=== PATIENT | male | born 1995 | race Caucasian/White ===

== ENCOUNTER 2022-06-08 17:06 | Emergency (ER) | payer MEDICAID, SELFPAY ==
[2022-06-08 17:07] VITALS: BP 135/94; PULSE 102; RESP 17; TEMP 36.2; O2SAT 96; BMI 24.4
--- NOTE | 2022-06-08 17:15 | EX.ED.GUMALE ---
HPI History of Present Illness Chief Complaint: Male Pain/Injury Detail of Chief Complaint: Left testicular pain Informant: patient Pain Onset: Today (Acute onset 1 to 2 hours ago) Context: Sudden Onset Timing: Continuous Current Severity: Moderate Maximum Severity: Severe Worsened by: Nothing specific Relieved by: None thank Appearance Lesion(s): No Penile Discharge Genital Discharge Amount: None Related History Sexually: Active Unprotected Sex: Yes STD: No Epididymitis: No Bladder/Kidney Infection: No Enlarged Prostate: No Prostate Infection: No Prostate Cancer: No Narrative Narrative: Patient is a 27-year-old male with history of testicular torsion that was repaired in the remote past. He presents because of abrupt onset of left testicular pain that is been present for 1 to 2 hours. He states since the surgery has had occasional episode of pain that lasted several minutes. There is nothing specific that makes the pain better or worse. There is nothing that precipitates the pain. Patient denies scrotal or testicular swelling. Patient denies penile lesions or discharge. Patient denies fever, chills night sweats. Patient denies history of STI. Prior similar symptoms: No Recent Illness/Hospitalization: No PFSH PFSH Medical History Anxiety Testicular torsion Home Medications NK 06/08/22 [History Last Taken Unknown] Allergy/AdvReac Type Severity Reaction Status Date / Time No Known Allergies Allergy Verified 06/08/22 17:08 Social History (Updated 06/08/22 @ 17:[address] Yao Oconnell MD) household members: significant other Smoking Status: Never smoker substance use type: does not use ROS ROS ED Constitutional Constitutional ED: Denies chills, fever(s), subjective, sweats or weight loss Eyes Eyes: Reports other Details: He denies photophobia. ; Denies blurry vision or change in vision ENT ENT ED: Denies ear pain, rhinorrhea or sore throat Gastrointestinal Gastrointestinal: Denies diarrhea, melena, nausea or vomiting Genitourinary Genitourinary ED: Reports other Details: HPI narrative ; Denies dysuria, hematuria or urinary frequency Musculoskeletal Musculoskeletal: Denies arthralgias, back pain or myalgias Integumentary Denies rash EXAM Physical Exam Const Vital Signs: 06/08/22 17:07 Temperature 97.1 F L Temperature Source Temporal Pulse Rate 102 H Respiratory Rate 17 Blood Pressure 135/94 H Blood Pressure Mean 107 Pulse Ox 96 Oxygen Delivery Method Room Air Positive well nourished and well developed General Appearance ED: well developed and NAD; Negative for pallor HEENT Reports moist mucous membranes normocephalic and atraumatic Eyes PERRL and EOMs intact bilaterally General Eye ED: Negative for pale conjunctiva or scleral icterus Neck no lymphadenopathy, supple and no JVD Resp normal respiratory effort Cardio regular rate and regular rhythm GI non-tender, non-distended and no masses Auscultation: normoactive bowel sounds Palpation: soft no CVA tenderness Narrative: Patient is circumcised. There is no penile lesions. There is no urethral discharge. There is no swelling of the scrotum. There is no swelling of the testicle. There is no tenderness of the testicle per se. There is no inguinal adenopathy. There is no evidence of hernia. Back/Spine no CVA tenderness Extremity normal to inspection General Extremety ED: Negative for edema or pulses abnormal General Extremity: Negative for edema or pulses abnormal Neuro oriented x3, CN's II-XII intact bilaterally and moves all extremities Sensorium / Orientation: alert Sensory Exam: sensory level loss detected Skin General Skin Exam: Negative for jaundice or pallor Lesions: no lesions Rashes: no rashes MDM MDM MDM Narrative Medical decision making narrative: Patient with testicle pain of unknown etiology. We will treat his pain and a soft for possible infection or other causes. Patient was informed that because of his left testicular pain which is intermittent is unknown. Lab Data Attestation: I reviewed the patient's lab results. Lab results narrative: CBC and differential unremarkable. Comprehensive metabolic panel unremarkable. UA macro is positive for occult blood. Micro reveals 0-5 RBCs 0 WBCs. Leukoesterase and nitrites were negative. Labs: Laboratory Results - last 24 hr 06/08/22 06/08/22 06/08/22 17:25 17:25 17:25 WBC 8.1 RBC 5.09 Hgb 14.5 Hct 43.9 MCV 86.2 MCH 28.5 MCHC 33.0 RDW Std Deviation 38.9 RDW Coeff of Doris 12.3 Plt Count 266 MPV 9.8 Immature Gran % (Auto) 0.400 Neut % (Auto) 62.1 Lymph % (Auto) 24.9 [place] % (Auto) 8.4 Eos % (Auto) 3.7 Baso % (Auto) 0.5 Absolute Neuts (auto) 5.0 Absolute Lymphs (auto) 2.02 Nucleated RBC % 0 Sodium 138 Potassium 3.7 Chloride 104 Carbon Dioxide 28.0 Anion Gap 6 BUN 16 Creatinine 1.12 Estim Creat Clear Calc 109.70 Est GFR (MDRD) Af Amer 102 Est GFR (MDRD) Non-Af 84 BUN/Creatinine Ratio 14.3 Glucose 98 Calcium 8.9 Total Bilirubin 0.70 AST 17 ALT 28 Alkaline Phosphatase 67 Total Protein 7.5 Albumin 4.2 Globulin 3.3 Albumin/Globulin Ratio 1.3 Urine Color Yellow Urine Clarity Clear Urine pH 6.0 Ur Specific [place] 1.025 Urine Protein 15 H Urine Glucose (UA) Normal Urine Ketones 5 H Urine Occult Blood 10 H Urine Nitrite Negative Urine Bilirubin Negative Urine Urobilinogen Normal Ur Leukocyte Esterase Negative Urine RBC 0-5 SEEN Urine WBC 0 SEEN Ur Squamous Epith Cells 0 SEEN Urine Bacteria 1+ Urine Mucus 0 SEEN Discharge Plan Triage Chief Complaint: Male Pain/Injury ED Provider: Yao Oconnell Dx/Rx/DC Orders Clinical Impression: Left testicular pain Instructions: ED Pain, Acute, Uncertain Cause Prescriptions: No Action NK Primary Care Provider: Care Physician,No Primary Referrals: Ashish Main MD [NON-STAFF] - 1-2 Weeks Activity Restrictions/Additional Instructions: Take either Advil or Aleve for your pain. Disposition Disposition: Home, Self Care
[2022-06-08] MEDS: Ketorolac 15 MG/ML Vial IV (17:27)
[2022-06-08 17:36] LABS: Mucous, Urine 0 SEEN /hpf (<or=2+); Squamous Epithelial Cells - UA 0 SEEN /hpf (0-5); White Blood Cells 0 SEEN /hpf (0-5)
[2022-06-08 17:37] LABS: Absolute Lymphocyte Count 2.02 X10^3/uL (0.83-4.51); Basophil# 0.04 X10^3/uL; Basophil% 0.5 % (0-1); Eosinophils% 3.7 % (0-5); Hematocrit 43.9 % (40-54); Hemoglobin 14.5 g/dL (13.0-16.5); Lymphocyte # 2.02 X10^3/ul (0.83-4.51); Lymphocyte % 24.9 % (19-41); Mean Corpuscular Hgb 28.5 pg (27.0-32.0); Mean Corpuscular Volume 86.2 fL (80-94); Mean Platelet Vol. 9.8 fl (6.2-12.0); Monocyte# 0.68 X10^3/uL; Monocyte% 8.4 % (0-10); NRBC Flagged by Analyzer 0 % (0-5); Neutrophil # 5.04 X10^3/uL (2.7-7.7); Neutrophil % 62.1 % (47-70); Platelet Count 266 K/mm3 (150-450); RBC Distribution Width CV 12.3 % (11.6-14.6); RBC Distribution Width SD 38.9 fl (35.1-43.9); Red Blood Count 5.09 M/mm3 (4.6-6.2); White Blood Count 8.1 K/mm3 (4.4-11.0)
[2022-06-08 17:49] LABS: Color, Urine Yellow (Yellow); Glucose, Dipstick Normal (Normal); Ketone-Dipstick 5 mg/dl (Negative); Leukocyte Esterase-Dipstick Negative /ul (Negative); Nitrite-Dipstick Negative (Negative); Occult Blood-Urine 10 /ul (Negative); Protein-Dipstick 15 mg/dl (Negative); Specific Gravity, Urine 1.025 (1.002-1.030); Urine Bilirubin Dipstick Negative (Negative); Urine Clarity Clear (Clear); Urine Urobilinogen Normal (Normal)
[2022-06-08 17:55] LABS: ALB/GLOB Ratio 1.3 RATIO (0.9-2.4); AST(SGOT) 17 U/L (15-37); Alanine Aminotransfer ALT/SGPT 28 U/L (16-61); Albumin, Serum 4.2 g/dL (3.2-5.0); Alkaline Phosphatase 67 U/L (45-117); Anion Gap 6 (5-15); BUN 16 mg/dL (7-18); BUN/Creat Ratio 14.3 RATIO (10-20); Calcium,Total 8.9 mg/dL (8.5-10.1); Chloride 104 mmol/L (98-107); Creatinine, Serum 1.12 mg/dL (0.70-1.30); EST Glomerular Filtration Rate 84 mL/min (>60); Est Glom Filt Rate - Afr Amer 102 mL/min (>60); Globulin 3.3 g/dL (2.2-4.2); Glucose 98 mg/dL (74-106); Potassium 3.7 mmol/L (3.5-5.1); Protein, Total 7.5 g/dL (6.4-8.2); Sodium Level 138 mmol/L (136-145)
[2022-06-08 17:57] LABS: Bacteria 1+ /hpf (None Seen); Red Blood Cells-Urine 0-5 SEEN /hpf (0-5)
[2022-06-08 18:43] VITALS: BP 113/69; PULSE 72; RESP 15; O2SAT 97
== END 2022-06-08 18:44 | disposition home or self-care (01) ==
PROVIDERS: Emergency Provider Emergency Medicine; Visit Provider Emergency Medicine
DX: N50.812 Left testicular pain (principal)
CPT/HCPCS: 80053; 81001; 85025; 96374; 99284; A4216